=== PATIENT | male | born 1960 | race Caucasian/White ===

== ENCOUNTER 2016-12-16 23:12 | Emergency (ER) | payer SELFPAY ==
[2016-12-16] MEDS ORDERED: ACETAMINOPHEN 325 MG TABLET (FP) ONE (23:29)
[2016-12-16] MEDS ORDERED: ACETAMINOPHEN 325 MG TABLET (FP) PO ONE (23:35)
[2016-12-16 23:46] LABS: URINE APPEARANCE CLEAR; URINE BILIRUBIN NEGATIVE (NEGATIVE); URINE BLOOD 2+ (NEGATIVE); URINE COLOR YELLOW; URINE GLUCOSE (UA) NEGATIVE (NEGATIVE); URINE KETONE TRACE (NEGATIVE); URINE LEUK ESTERASE NEGATIVE (NEGATIVE); URINE NITRITE NEGATIVE (NEGATIVE)
[2016-12-16 23:49] VITALS: BMI 26.6
[2016-12-16 23:50] LABS: URINE PROTEIN 2+ (NEGATIVE)
[2016-12-16 23:51] LABS: URINE HYALINE CAST 5 /lpf; URINE MUCUS RARE; URINE RBC 5 /hpf (0-3); URINE WBC 2 /hpf (3-5)
[2016-12-17] MEDS ORDERED: SODIUM CHLORIDE 1,000 ML IV STA (00:31)
--- NOTE | 2016-12-17 00:40 | PDOC ---
History of Present Illness - General History Source: Patient Exam Limitations: No Limitations - History of Present Illness Initial Comments: The patient is a 56 yo M with a past medical history significant for HTN who presents with fever for 3 days. The patients fever is nearly 103. He also endorses generalized malaise, diffuse body aches and decreased appetite. The patient denies nausea, vomiting and diarrhea. The patient denies cough. The patient notes associated chills. The patient denies chest pain, palpitations and lightheadedness. The patient denies frequency, hematuria and dysuria. Social Hx: Occasionally ETOH use <JoDiane - Last Filed: 12/17/16 00:40> - General History Source: Patient <JaviMatthew - Last Filed: 12/17/16 06:23> - General Chief Complaint: SIRS, Suspected/Possible Stated Complaint: Headache/ABD PAIN Time Seen by Provider: 12/17/16 00:40 Past History <JoDiane - Last Filed: 12/17/16 00:40> - Past Medical History CVA: Yes (2011) HTN: Yes Hypercholesterolemia: Yes - Psycho/Social/Smoking Cessation Hx Suicidal Ideation: No Smoking Status: No Smoking History: Never smoked Number of Cigarettes Smoked Daily: 0 <Juan RamonAnnette madrigalan - Last Filed: 12/17/16 06:23> - Past Medical History Allergies/Adverse Reactions: Allergies Allergy/AdvReac Type Severity Reaction Status Date / Time No Known Allergies Allergy Verified 12/16/16 23:27 Home Medications: Ambulatory Orders Lisinopril [Prinivil] 2.5 mg PO DAILY #7 tablet 09/05/12 Potassium Chloride [K-Tab ER] 20 meq PO DAILY 12/16/16 Ibuprofen 800 mg PO TID #30 tablet 12/17/16 Review of Systems - Review of Systems Able to Perform ROS?: Yes Comments:: CONSTITUTIONAL: +fever, chills, generalized malaise, loss of appetite Absent: diaphoresis HEENT: Absent: rhinorrhea, nasal congestion, throat pain, throat swelling, difficulty swallowing, mouth swelling, ear pain, eye pain, visual Changes CARDIOVASCULAR: Absent: chest pain, syncope, palpitations, irregular heart rate, lightheadedness , peripheral edema RESPIRATORY: Absent: cough, shortness of breath, dyspnea with exertion, orthopnea, wheezing, stridor, hemoptysis GASTROINTESTINAL: Absent: abdominal pain, abdominal distension, nausea, vomiting, diarrhea, constipation, melena, hematochezia GENITOURINARY: Absent: dysuria, frequency, urgency, hesitancy, hematuria, flank pain, genital pain MUSCULOSKELETAL: + generalized body aches Absent: arthralgia, joint swelling SKIN: Absent: rash, itching, pallor NEUROLOGIC: Absent: headache, focal weakness or paresthesias, dizziness, unsteady gait, seizure, mental status changes, bladder or bowel incontinence PSYCHIATRIC: Absent: anxiety, depression, suicidal or homicidal ideation, hallucinations. <Diane Osorio - Last Filed: 12/17/16 00:40> *Physical Exam - Vital Signs Last Vital Signs Temp Pulse Resp BP Pulse Ox 102.7 F H 96 H 18 142/96 96 12/16/16 23:36 12/16/16 23:36 12/16/16 23:36 12/16/16 23:36 12/16/16 23:36 - Physical Exam Comments: GENERAL: Well developed, well nourished. Awake and alert. No acute distress. HEENT: Normocephalic, atraumatic. PERRLA, EOMI. No conjunctival pallor. Sclera are non- icteric. Moist mucous membranes. Oropharynx is clear. NECK: Supple. Full ROM. No JVD. Carotid pulses 2+ and symmetric, without bruits. No thyromegaly. No lymphadenopathy. CARDIOVASCULAR: Regular rate and rhythm. No murmurs, rubs, or gallops. Distal pulses are 2+ and symmetric. PULMONARY: No evidence of respiratory distress. Lungs clear to auscultation bilaterally. No wheezing, rales or rhonchi. ABDOMINAL: Soft. Non-tender. Non-distended. No rebound or guarding. No organomegaly. Normoactive bowel sounds. MUSCULOSKELETAL Normal range of motion at all joints. No bony deformities or tenderness. No CVA tenderness. EXTREMITIES: No cyanosis. No clubbing. No edema. No calf tenderness. SKIN: Warm and dry. Normal capillary refill. No rashes. No jaundice. NEUROLOGICAL: NO gross focal neurological deficits. PSYCHIATRIC: Cooperative. Good eye contact. Appropriate mood and affect. <Diane Osorio - Last Filed: 12/17/16 00:40> - Vital Signs Last Vital Signs Temp Pulse Resp BP Pulse Ox 102.7 F H 96 H 18 142/96 96 12/16/16 23:36 12/16/16 23:36 12/16/16 23:36 12/16/16 23:36 12/16/16 23:36 <Matthew Caldwell - Last Filed: 12/17/16 06:23> ED Treatment Course - ADDITIONAL ORDERS Additional order review: Laboratory Results 12/16/16 23:36 Urine Color Yellow Urine Appearance Clear Urine pH 5.0 Urine Protein 2+ H Urine Glucose (UA) Negative Urine Ketones Trace H Urine Blood 2+ H Urine Nitrite Negative Urine Bilirubin Negative Urine Urobilinogen 2.0 Ur Leukocyte Esterase Negative Urine RBC 5 Urine WBC 2 Hyaline Casts 5 Urine Mucus Rare - Medications Given in the ED: ED Medications Discontinued Medications Generic Name Dose Route Start Last Admin Trade Name Freq PRN Reason Stop Dose Admin Acetaminophen 650 mg 12/16/16 23:35 12/16/16 23:35 Tylenol - PO 12/16/16 23:36 650 mg NOW ONE Administration <Diane Osorio - Last Filed: 12/17/16 00:40> - LABORATORY CBC & Chemistry Diagram: 12/17/16 00:57 12/17/16 05:30 - ADDITIONAL ORDERS Additional order review: Laboratory Results 12/16/16 23:36 Urine Color Yellow Urine Appearance Clear Urine pH 5.0 Urine Protein 2+ H Urine Glucose (UA) Negative Urine Ketones Trace H Urine Blood 2+ H Urine Nitrite Negative Urine Bilirubin Negative Urine Urobilinogen 2.0 Ur Leukocyte Esterase Negative Urine RBC 5 Urine WBC 2 Hyaline Casts 5 Urine Mucus Rare - RADIOLOGY Radiology Studies Ordered: Category Date Time Status CHEST PA & LAT [RAD] Stat Radiology 12/17/16 00:31 Ordered - Medications Given in the ED: ED Medications Discontinued Medications Generic Name Dose Route Start Last Admin Trade Name Freq PRN Reason Stop Dose Admin Acetaminophen 650 mg 12/16/16 23:35 12/16/16 23:35 Tylenol - PO 12/16/16 23:36 650 mg NOW ONE Administration <Matthew Caldwell - Last Filed: 12/17/16 06:23> Medical Decision Making - Medical Decision Making 12/17/16 06:23 Dr. Caldwell: The scribe's documentation has been prepared under my direction and personally reviewed by me in its entirery. I confirm that the note above accurately reflects all work, treatment, procedures, and medical decision making performed by me. <Matthew Caldwell - Last Filed: 12/17/16 06:23> *DC/Admit/Observation/Transfer - Attestations Scribe Attestion: Documentation prepared by Diane Osorio, acting as medical collections specialist for Matthew Caldwell MD/DO. <Diane Osorio - Last Filed: 12/17/16 00:40> - Discharge Dispostion Admit: No <Matthew Caldwell - Last Filed: 12/17/16 06:23> Diagnosis at time of Disposition: Fever, Hypokalemia - Prescriptions Prescriptions: Ibuprofen 800 mg PO TID #30 tablet - Patient Instructions Printed Discharge Instructions: DI for Hypokalemia, DI for Fever (Symptom) -- Adult Additional Instructions: drink plenty of fluids. Take Motrin for fever. Continue taking you Potassium as usual. Bed rest. Follow up with your doctor by Wednesday of this week. Print Language: INDIAN
[2016-12-17 01:19] LABS: BASOPHIL 0.4 % (0-2.0); EOSINOPHIL 0.1 % (0-4.5); MCH 31.7 pg (25.7-33.7); MCHC 34.8 g/dl (32.0-35.9); MEAN CELL VOLUME 90.9 fl (80-96); MEAN PLT VOLUME 9.5 fl (7.5-11.1); NEUTROPHILS 78.8 % (42.8-82.8); PLATELET COUNT 173 K/MM3 (134-434); RDW 12.7 % (11.9-15.9); WHITE BLOOD COUNT 7.7 K/mm3 (4.0-10.0)
[2016-12-17 01:42] LABS: ALBUMIN 3.1 g/dl (3.4-5.0); ANION GAP 14 (8-16); CALCIUM 8.4 mg/dL (8.5-10.1); CO2 29 mmol/L (21-32); CREATININE 1.9 mg/dL (0.7-1.3); GLUCOSE,RANDOM 98 mg/dL (74-106); SGOT/AST 50 U/L (15-37); SGPT/ALT 36 U/L (12-78); TOT PROT 7.3 g/dl (6.4-8.2)
[2016-12-17 01:43] LABS: ALK PHOS 48 U/L (45-117)
[2016-12-17 01:44] LABS: ACETONE SERUM NEGATIVE (NEGATIVE)
[2016-12-17] MEDS ORDERED: POTASSIUM CHLORIDE TABS 20 MEQ TABLET.ER (FP) PO ONE ×3 (01:46→04:06)
[2016-12-17] MEDS ORDERED: KCL 10 MEQ IVPB 100 ML IVPB ONE (02:09)
[2016-12-17] MEDS: KCL 10 MEQ IVPB 100 ML IVPB SCH ×2 (02:45→04:59)
[2016-12-17 03:45] VITALS: BP 134/90; PULSE 80; TEMP 98.1
[2016-12-17] MEDS ORDERED: POTASSIUM CHLORIDE ORAL LIQUID 20 MEQ/15 ML ONE ×2 (04:48→06:20)
[2016-12-17] MEDS ORDERED: POTASSIUM CHLORIDE ORAL LIQUID 20 MEQ/15 ML PO ONE ×2 (04:57→06:16)
== END 2016-12-17 06:29 | disposition home or self-care (01) ==
LOC: JER 23:12
PROC: 3E0337Z Introduction of Electrolytic and Water Balance Substance into Peripheral Vein, Percutaneous Approach (ICD-10-PCS; principal; 2016-12-16)
DX: E87.6 Hypokalemia (principal); R50.9 Fever, unspecified
CPT/HCPCS: 36415; 71020-TC; 80053; 81003; 81015; 82009; 83735; 84132; 85025; 87086; 99283-25

== ENCOUNTER 2019-04-07 20:04 | Emergency (ER) | payer OTHER ==
--- NOTE | 2019-04-07 20:23 | PDOC ---
History of Present Illness - General Stated Complaint: INTOX - History of Present Illness Initial Comments: The pt is a 58M w/ a history HTN and EtOH abuse who presents for evaluation of EtOH intoxication and mechanical fall from standing. The pt reports hitting his head and currently has a left sided MOYA. He denies any other injuries or pain. He states he drank 1 pint of alycia and 4-6 beers today. Pt was able to stand after his fall. Denies recent illness, fevers, vision changes, chest pain, trouble breathing, cough, abdominal pain, N/V/C/D, history of seizures/withdrawal 04/07/19 20:52 Past History - Past Medical History Allergies/Adverse Reactions: Allergies Allergy/AdvReac Type Severity Reaction Status Date / Time No Known Allergies Allergy Verified 12/16/16 23:27 Home Medications: Ambulatory Orders Lisinopril [Prinivil] 2.5 mg PO DAILY #7 tablet 09/05/12 Potassium Chloride [K-Tab ER] 20 meq PO DAILY 12/16/16 Ibuprofen 800 mg PO TID #30 tablet 12/17/16 CVA: Yes (2011) HTN: Yes Hypercholesterolemia: Yes - Psycho Social/Smoking Cessation Hx Smoking Status: No Smoking History: Never smoked Number of Cigarettes Smoked Daily: 0 Review of Systems - Review of Systems Able to Perform ROS?: Yes Comments:: GENERAL/CONSTITUTIONAL: No fever or chills. No weakness HEAD, EYES, EARS, NOSE AND THROAT: No change in vision. No change in hearing. No sore throat CARDIOVASCULAR: No chest pain or shortness of breath RESPIRATORY: Denies cough, hemoptysis GASTROINTESTINAL: No nausea, vomiting, diarrhea or constipation GENITOURINARY: No dysuria, frequency, or change in urination MUSCULOSKELETAL: No joint or muscle swelling or pain. No neck or back pain SKIN: No rash NEUROLOGIC: No vertigo, loss of consciousness, or change in strength/sensation ENDOCRINE: No increased thirst. No abnormal weight change HEMATOLOGIC/LYMPHATIC: No anemia, easy bleeding, or history of blood clots ALLERGIC/IMMUNOLOGIC: No hives or skin allergy 04/07/19 20:23 Is the patient limited Luxembourgish proficient: No *Physical Exam - Vital Signs Vital Signs Period Temp Pulse Resp BP Sys/Ye Pulse Ox Last 24 Hr 97.9 F 80 18 135/78 97 04/07/19 20:56 - Physical Exam Comments: GENERAL: Awake, alert, in no acute distress HEAD: left parietal hematoma w/o abrasion or laceration EYES: PERRLA, EOMI, sclera anicteric, conjunctiva clear ENT: Hearing grossly normal, nares patent, oropharynx clear without exudates. Moist mucosa LUNGS: No distress, speaks in full sentences, clear to auscultation bilaterally HEART: Regular rate and rhythm, normal S1 and S2, no murmurs appreciated, peripheral pulses normal and equal bilaterally ABDOMEN: Soft, nontender, normoactive bowel sounds. No guarding, no rebound EXTREMITIES: Normal inspection, Normal range of motion, no edema. No clubbing or cyanosis NEUROLOGICAL: Cranial nerves II through XII grossly intact. 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 No evidence of acute intracranial hemorrhage on this study. 2. Hypodensity of the periventricular white matter, with one possible etiology of small vessel ischemic disease. If able to be performed, a head MR may be helpful for further evaluation. 3. Left maxillary sinus disease. 4. Atherosclerotic calcifications. 5. Nasal septal deviation. 04/08/19 01:05 Medical Decision Making - Medical Decision Making The pt is a 58M w/ a history HTN and EtOH abuse who presents for evaluation of EtOH intoxication and mechanical fall from standing. ED Course CMP, CBC CT head IVF Reassess 04/07/19 20:59 Hypokalemia noted -KCl 10mEq -KCl 60mg PO once Lytes otherwise wnl No JIM LFTs wnl No leukocytosis No anemia 04/07/19 22:[address] head w/o acute fracture or bleed Pt speaking with clear speech. Pt's , Mrs. Gilbert, states she will care for him. Plan for D/C w/ PCP f/u Discharge instructions and return precautions given Patient in agreement and verbalized understanding Dispo: Home 04/08/19 01:14 Discharge - Discharge Information Problems reviewed: Yes Clinical Impression/Diagnosis: Hypokalemia Alcohol intoxication Qualifiers: Complication of substance-induced condition: uncomplicated Qualified Code(s): F10.920 - Alcohol use, unspecified with intoxication, uncomplicated Fall from standing Qualifiers: Encounter type: initial encounter Qualified Code(s): W19.XXXA - Unspecified fall, initial encounter Condition: Stable - Admission No - Follow up/Referral Referrals: [facility] [place] [facility] [place] [Provider Group] - Patient Discharge Instructions Patient Printed Discharge Instructions: DI for Alcohol Abuse Additional Instructions: You were seen in the Emergency Department for evaluation of alcohol intoxication and fall. Your potassium was noted to be low and was repleted. Your CT was negative for fracture and bleed. Review the handout provided at discharge. Follow up with your primary care provider or referral given within a week. Return to the Emergency Department if you develop fevers, chest pain, trouble breathing, vomiting, worsening pain, change in sensation, worsening symptoms, or any new/concerning symptoms. - Post Discharge Activity
[2019-04-07] MEDS ORDERED: SODIUM CHLORIDE 0.9% 500 ML INFUS.BAG IV ONE (20:49)
[2019-04-07 20:59] VITALS: TEMP 97.9; BMI 29.1
[2019-04-07 21:24] LABS: EOS % 1.5 % (0-4.5); HEMATOCRIT 43.1 % (35.4-49); HEMOGLOBIN 15.1 GM/dL (11.7-16.9); LYMPH % 16.2 % (8-40); MCH 32.7 pg (25.7-33.7); MEAN CELL VOLUME 93.5 fl (80-96); MEAN PLT VOLUME 9.7 fl (7.5-11.1); MONO % 7.2 % (3.8-10.2); NEUT % 74.1 % (42.8-82.8); PLATELET COUNT 268 K/MM3 (134-434); RBC 4.61 M/mm3 (4.00-5.60); RDW 14.9 % (11.9-15.9); WHITE BLOOD COUNT 7.8 K/mm3 (4.0-10.0)
[2019-04-07 22:07] LABS: ALBUMIN 3.5 g/dl (3.4-5.0); BILIRUBIN,TOTAL 0.5 mg/dL (0.2-1); CREATININE 1.2 mg/dL (0.55-1.3); TOT PROT 7.5 g/dl (6.4-8.2)
[2019-04-07 22:10] LABS: POTASSIUM 2.6 mmol/L (3.5-5.1)
[2019-04-07] MEDS ORDERED: POTASSIUM CHLORIDE TABS 20 MEQ TABLET.ER (FP) PO ONE ×2 (22:11→22:27)
[2019-04-07] MEDS ORDERED: KCL 10 MEQ IVPB 10 MEQ/100 ML INFUS.BAG IVPB SCH (22:15)
[2019-04-07] MEDS ORDERED: KCL 10 MEQ IVPB 10 MEQ/100 ML INFUS.BAG IVPB ONE (22:27)
--- NOTE | 2019-04-07 22:40 | PDOC ---
Documentation entered by Fransisco Mckinnon SCRIBE, acting as scribe for Jacqueline Jenkins MD. Jacqueline Jenkins MD: This documentation has been prepared by the Ino baugh Daniel, SCRIBE, under my direction and personally reviewed by me in its entirety. I confirm that the documentation accurately reflects all work, treatment, procedures, and medical decision making performed by me. Attending Attestation - Resident Resident Name: Sreedhar Erazo - ED Attending Attestation I have performed the following: I have examined & evaluated the patient, The case was reviewed & discussed with the resident, I agree w/resident's findings & plan, Exceptions are as noted - HPI HPI: 04/07/19 20:52 The patient is a 58 year old male with a past medical history of HTN (not compliant with meds) here today for evaluation of headache s/p fall. The patient reports that he usually drinks a 6 pack of beer and a pint of liquor a day and had a pint of alycia and 4 beers today. The patient reports that he was watching TV today when he stood up, walked a little, and fell hitting his head. He states that he was able to stand after falling and currently notes a headache. Patient denies headache, lightheadedness. Denies fever, chills. Denies chest pain, shortness of breath. Denies nausea, vomiting, diarrhea, abdominal pain. Allergies: NKA - Physicial Exam PE: 04/07/19 22:18 General Physical Exam: NAD EOMI, JOHN +head hematoma MMM, OP WNL NCAT, no midline cervical tenderness RRR, nl s1/s2, no m/r/g CTABL, no w/r/r Soft, NTND No edema, WWP, no rash Neuro grossly intact, gait WNL, moving all 4 A&O x 3, mood/affect WNL. - Medical Decision Making 04/07/19 22:39 58yoM chronic etoh abuse presents intoxicated w/ a trip and fall w/ + head strike, no LOC. Pt is awake and alert, states he feels well Failes [place] HCT becase of intoxication. - HCT - MTF
[2019-04-08 01:13] LABS: BLOOD UREA NITROGEN 11.4 mg/dL (7-18); CALCIUM 8.4 mg/dL (8.5-10.1); CREATININE 1.1 mg/dL (0.55-1.3); POTASSIUM 3.6 mmol/L (3.5-5.1)
[2019-04-08 01:53] VITALS: BP 129/82; PULSE 76
== END 2019-04-08 01:35 | disposition home or self-care (01) ==
LOC: JER 20:04
PROC: 3E0337Z Introduction of Electrolytic and Water Balance Substance into Peripheral Vein, Percutaneous Approach (ICD-10-PCS; principal; 2019-04-07)
DX: F10.129 Alcohol abuse with intoxication, unspecified (principal); E87.6 Hypokalemia; I10 Essential (primary) hypertension; E78.5 Hyperlipidemia, unspecified; Z91.14 Patient's other noncompliance with medication regimen; Z86.73 Personal history of transient ischemic attack (TIA), and cerebral infarction without residual deficits; W18.39XA Other fall on same level, initial encounter; Y93.89 Activity, other specified; Y92.008 Other place in unspecified non-institutional (private) residence as the place of occurrence of the external cause
CPT/HCPCS: 36415; 70450-TC; 80048; 80053; 85025; 99284-25

== ENCOUNTER 2021-02-07 11:23 | Emergency (ER) | payer OTHER ==
[2021-02-07] MEDS ORDERED: FLUORESCEIN NA 1 EA STRIP OD ONE (12:34)
[2021-02-07] MEDS ORDERED: TETRACAINE 0.5% HCL 0.6ML DROPPER.BOTTLE OD ONE (12:34)
[2021-02-07] MEDS ORDERED: FLUORESCEIN NA 1 EA STRIP ONE (12:37)
[2021-02-07] MEDS ORDERED: TETRACAINE 0.5% OPHTH SOLN 2 ML BOTTLE ONE (12:37)
[2021-02-07] MEDS ORDERED: ERYTHROMYCIN 0.5% OPHTHALMIC OINTMENT 3.5 GM TUBE OD ONE (13:03)
[2021-02-07 13:06] VITALS: BP 135/82; PULSE 88; TEMP 97; BMI 25.0
[2021-02-07] MEDS ORDERED: ERYTHROMYCIN 0.5% OPHTHALMIC OINTMENT 3.5 GM TUBE ONE (13:06)
== END 2021-02-07 13:20 | disposition home or self-care (01) ==
LOC: JERFT 11:23
DX: S05.01XA Injury of conjunctiva and corneal abrasion without foreign body, right eye, initial encounter (principal)
CPT/HCPCS: 99283-25